=== PATIENT | male | born 1970 | race Caucasian/White ===

== ENCOUNTER 2018-10-17 11:24 | Observation (INO) | payer BC ==
[2018-10-17 11:24] VITALS: BMI 30.1
[~2018-10-17 11:24] MED LIST: Bupivacaine 0.5% Inj(30mL) IJ ONE
[2018-10-17] MEDS ORDERED: Alum-Mag Hydrox-Simethicone Susp (30 mL) PO STA (11:56)
--- NOTE | 2018-10-17 12:05 | ED PDOC ---
Arrival/HPI - General Chief Complaint: Abdominal Pain Time Seen by Provider: 10/17/18 11:40 Historian: Patient - History of Present Illness Narrative History of Present Illness (Text): 10/17/18 11:40 Reed Carey is a 48 year old male, with a past medical history of diabetes type II, who presents to the emergency department complaining of epigastric pain radiating to the right upper quadrant since 07:00 this morning. Patient informs eating [place] food last night; Pt's last bowel movement was this morning. Patient denies fevers, chills, headache, dizziness, chest pain, shortness of breath, cough, vomiting, diarrhea, dysuria, hematuria, or any other complaints. Time/Duration: 24 hours (last night) Symptom Onset: Sudden Symptom Course: Unchanged Activities at Onset: Light Context: Home Past Medical History - Provider Review Nursing Documentation Reviewed: Yes - Infectious Disease Hx of Infectious Diseases: None - Cardiac Hx Hypertension: Yes - Pulmonary Hx Respiratory Disorders: No - Neurological Hx Neurological Disorder: No - HEENT Hx HEENT Disorder: No - Renal Hx Renal Disorder: No - Endocrine/Metabolic Hx Diabetes Mellitus Type 2: Yes - Hematological/Oncological Hx Blood Disorders: No - Integumentary Hx Dermatological Disorder: No - Musculoskeletal/Rheumatological Hx Musculoskeletal Disorders: No - Gastrointestinal Hx Gastrointestinal Disorders: No - Genitourinary/Gynecological Hx Genitourinary Disorders: No - Psychiatric Hx Psychophysiologic Disorder: No Hx Substance Use: No - Anesthesia Hx Anesthesia: No Hx Anesthesia Reactions: No Hx Malignant Hyperthermia: No Family/Social History - Physician Review Nursing Documentation Reviewed: Yes Family/Social History: Other (brother: cholecystectomy, mother: appendectomy) Smoking Status: Light Smoker < 10 Cigarettes Daily Hx Alcohol Use: No Hx Substance Use: No Allergies/Home Meds Allergies/Adverse Reactions: Allergies ibuprofen Allergy (Verified 10/30/17 08:42) WHEEZING Home Medications: Home Meds Medication Instructions Recorded Confirmed Dapagliflozin Propanediol [Farxiga] 10 mg PO DAILY 10/30/17 10/17/18 Lisinopril [Zestril] 5 mg PO DAILY 10/30/17 10/17/18 Simvastatin 5 mg PO DAILY 10/30/17 10/17/18 metFORMIN [glucOPHAGE] 1,000 mg PO BID 10/30/17 10/17/18 Review of Systems - Physician Review All systems were reviewed & negative as marked: Yes - Review of Systems Constitutional: absent: Fevers, Other (chills) Respiratory: absent: SOB, Cough Cardiovascular: absent: Chest Pain Gastrointestinal: Abdominal Pain (epigastric radiating to RUQ), Nausea. absent: Diarrhea, Vomiting Genitourinary Male: absent: Dysuria, Hematuria Neurological: absent: Headache, Dizziness Physical Exam Vital Signs Reviewed: Yes Vital Signs Temp Pulse Resp BP Pulse Ox 10/17/18 11:29 98 F 102 H 19 125/90 99 Temperature: Afebrile Blood Pressure: Normal Pulse: Tachycardic Respiratory Rate: Normal Appearance: Positive for: Well-Appearing, Non-Toxic, Comfortable Pain Distress: None Mental Status: Positive for: Alert and Oriented X 3 - Systems Exam Head: Present: Atraumatic, Normocephalic Pupils: Present: PERRL Extroacular Muscles: Present: EOMI Conjunctiva: Present: Normal Mouth: Present: Moist Mucous Membranes Neck: Present: Normal Range of Motion Respiratory/Chest: Present: Clear to Auscultation, Good Air Exchange. No: Respiratory Distress, Accessory Muscle Use, Wheezes, Rales, Rhonchi Cardiovascular: Present: Normal S1, S2, Tachycardic. No: Murmurs, Rub, Gallop Abdomen: Present: Tenderness (R sided), Normal Bowel Sounds. No: Distention, Peritoneal Signs, Rebound, Guarding Back: Present: Normal Inspection Upper Extremity: Present: Normal Inspection. No: Cyanosis, Edema Lower Extremity: Present: Normal Inspection. No: Edema Neurological: Present: GCS=15, CN II-XII Intact, Speech Normal Skin: Present: Warm, Dry, Normal Color. No: Rashes Psychiatric: Present: Alert, Oriented x 3, Normal Insight, Normal Concentration Medical Decision Making ED Course and Treatment: 10/17/18 11:40 Impression: Reed Carey is a 48 year old male, with a past medical history of diabetes type II, who presents to the emergency department complaining of epigastric pain radiating to the right upper quadrant since 07:00 this morning. Tender on exam Plan: -- Labs -- EKG -- Maalox -- Pepcid -- Zofran -- US Gallbladder -- Reassess and disposition Prior Visits: Notes and results from previous visits were reviewed. Progress Notes: 05/17/19 12:35 EKG shows NSR at 91bpm with normal intervals and no ST changes 10/17/18 12:38 Patient made aware of elevated lipase levels; denies hx of abdominal surgeries or significant drinking 10/17/18 13:32 IMPRESSION: U/s: Examination limited by bowel gas. No acute findings identified. CT ordered 10/17/18 16:23 CT abd/pelvis There is mural thickening and enhancement of the appendix as well as minimal surrounding inflammatory changes. Findings are consistent with early appendicitis. 10/17/18 17:13 10/17/18 17:16 - Scribe Statement The provider has reviewed the documentation as recorded by the Scribe Giovanni Wood All medical record entries made by the Scribe were at my direction and personally dictated by me. I have reviewed the chart and agree that the record accurately reflects my personal performance of the history, physical exam, medical decision making, and the department course for this patient. I have also personally directed, reviewed, and agree with the discharge instructions and disposition. Disposition/Present on Arrival - Present on Arrival Any Indicators Present on Arrival: No History of DVT/PE: No History of Uncontrolled Diabetes: No Urinary Catheter: No History of Decub. Ulcer: No History Surgical Site Infection Following: None - Disposition Have Diagnosis and Disposition been Completed?: Yes Diagnosis: Appendicitis Disposition: HOSPITALIZED Disposition Time: 14:50 Patient Plan: Observation Condition: FAIR Referrals: Mary Jane Jameson MD [Primary Care Provider] - Follow up with primary Forms: [employer] (Uzbek)
[2018-10-17 12:18] LABS: BASO # 0.02 K/mm3 (0.0-2.0); BASO % 0.1 % (0.0-3.0); EOS # 0.1 (0.0-0.7); EOS % 0.6 % (1.5-5.0); HEMOGLOBIN 16.3 g/dL (14.0-18.0); LYMPH # 1.7 (1.2-3.4); LYMPH % 10.3 % (22.0-35.0); MEAN CELL VOLUME 82.5 fl (80.0-105.0); MEAN CORPUSCULAR HEMOGLOBIN 28.4 pg (25.0-35.0); MEAN CORPUSCULAR HGB CONC 34.5 g/dl (31.0-37.0); MEAN PLATELET VOLUME 9.2 fl (7.0-11.0); MONO # 1.3 (0.1-0.6); MONO % 7.5 % (1.0-6.0); RBC 5.73 10^6/uL (3.5-6.1); RED CELL DISTRIBUTION WIDTH 13.5 % (11.5-14.5); WHITE BLOOD COUNT 16.7 10^3/uL (4.5-11.0)
[2018-10-17 12:29] LABS: ALB/GLOB RATIO 1.2 (1.1-1.8); ALT/SGPT 33 U/L (7-56); AST/SGOT 24 U/L (17-59); BLOOD UREA NITROGEN 19 mg/dL (7-21); CALCIUM 9.3 mg/dL (8.4-10.5); GFR NON-AFRICAN AMERICAN > 60; LIPASE 1038 U/L (23-300)
[2018-10-17 12:40] LABS: TROPONIN I < 0.01 ng/mL
--- NOTE | 2018-10-17 13:34 | US ---
Date of service: 10/17/2018 HISTORY: RUQ pain COMPARISON: None available TECHNIQUE: Sonographic evaluation of the right upper quadrant of the abdomen. FINDINGS: Examination limited by bowel gas. LIVER: Measures 17.4 cm in length. Normal echogenicity of the liver parenchyma. No focal hepatic mass identified. The main portal vein appears patent with normal directional flow. No intrahepatic bile duct dilatation. GALLBLADDER: No gallstones. No gallbladder wall thickening or pericholecystic edema. Negative sonographic Haddad's sign as assessed by the category analyst. COMMON BILE DUCT: Measures 3 mm. PANCREAS: Not well-visualized. RIGHT KIDNEY: Measures approximately 10.7 x 4.5 x 5.8 cm. No obstructing calculus or hydronephrosis identified. AORTA: Not well-visualized. IVC: Limited visualization appears grossly unremarkable. OTHER FINDINGS: None . IMPRESSION: Examination limited by bowel gas. No acute findings identified.
[2018-10-17] MEDS ORDERED: Morphine 4 mg/ml ISec IVP STA ×2 (14:21→16:22)
[2018-10-17] MEDS ORDERED: Iohexol 350 MG/100 ML VIAL ONE (15:57)
--- NOTE | 2018-10-17 16:21 | CT ---
Date of service: 10/17/2018 PROCEDURE: CT Abdomen and Pelvis with contrast HISTORY: abdominal pain, pancreatitis, normal u/s COMPARISON: None. TECHNIQUE: Contrast dose: 100 cc of Omni 350 Radiation dose: Total exam DLP = 580.02 mGy-cm. This CT exam was performed using one or more of the following dose reduction techniques: Automated exposure control, adjustment of the mA and/or kV according to patient size, and/or use of iterative reconstruction technique. FINDINGS: LOWER THORAX: Unremarkable. LIVER: Unremarkable. No gross lesion or ductal dilatation. GALLBLADDER AND BILE DUCTS: Unremarkable. PANCREAS: Unremarkable. No gross lesion or ductal dilatation. SPLEEN: Unremarkable. ADRENALS: Unremarkable. No mass. KIDNEYS AND URETERS: Unremarkable. No hydronephrosis. No solid mass. VASCULATURE: Unremarkable. No aortic aneurysm. No aortic atherosclerotic calcification or mural plaque present. BOWEL: Unremarkable. No obstruction. No gross mural thickening. APPENDIX: There is mural thickening and enhancement of the appendix as well as minimal surrounding inflammatory changes. Findings are consistent with early appendicitis. Findings were discussed with Dr. Romero at 4:15 p.m. PERITONEUM: Unremarkable. No free fluid. No free air. LYMPH NODES: Unremarkable. No enlarged lymph nodes. BLADDER: Unremarkable. REPRODUCTIVE: Unremarkable. BONES: No acute fracture. OTHER FINDINGS: None. IMPRESSION: There is mural thickening and enhancement of the appendix as well as minimal surrounding inflammatory changes. Findings are consistent with early appendicitis.
--- NOTE | 2018-10-17 17:02 | CP.PCM.CON ---
<Alejandro Whalen - Last Filed: 10/17/18 17:07> History of Present Illness - History of Present Illness History of Present Illness: General Surgery Note for Dr. Parry 48 year old male with PMHx of DM, HTN, Hypercholesterolemia presents to the ED with epigastric and RUQ pain. The pain began at 7AM this morning and is described as being a sharp, stabbing pain 8 out of 10 in quality, mainly at the umbilicus. It woke the patient from his sleep and he tried drinking seltzer water, which worsened the pain. Gas X did not relieve his symptoms. He initially attributed his pain to bad food he ate the night before, however as the day went on pain migrated to the RLQ and became severe. Patient also promotes nausea earlier on. Patient denies fever, fatigue, headache, blurry vision, chest pain, palpitations, SOB, vomiting, diarrhea, constipation, numbness and tingling, urinary incontinence, dysuria. PMHx: DM Type 2, HTN, Hypercholesterolemia PSHx: nasal polyps 11 years ago Fam Hx: Mother (DM, gallstones), Brother (gallstones), Father (DM) Allergies: Ibuprofen, Motrin, and other NSAIDs (severe reaction) Social Hx: 12 year smoking history (approx. 2 packs a week), denies alcohol and illicit drug use Meds: Dapagliflozin 10 mg, Metformin 1000mg BID, Simvastatin 5mg, Lisinopril 5mg Review of Systems - Review of Systems All systems: reviewed and no additional remarkable complaints except (As per HPI) Past Patient History - Infectious Disease Hx of Infectious Diseases: None - Past Social History Smoking Status: Light Smoker < 10 Cigarettes Daily - CARDIAC Hx Hypertension: Yes - PULMONARY Hx Respiratory Disorders: No - NEUROLOGICAL Hx Neurological Disorder: No - HEENT Hx HEENT Problems: No - RENAL Hx Chronic Kidney Disease: No - ENDOCRINE/METABOLIC Hx Diabetes Mellitus Type 2: Yes - HEMATOLOGICAL/ONCOLOGICAL Hx Blood Disorders: No - INTEGUMENTARY Hx Dermatological Problems: No - MUSCULOSKELETAL/RHEUMATOLOGICAL Hx Musculoskeletal Disorders: No - GASTROINTESTINAL Hx Gastrointestinal Disorders: No - GENITOURINARY/GYNECOLOGICAL Hx Genitourinary Disorders: No - PSYCHIATRIC Hx Psychophysiologic Disorder: No Hx Substance Use: No - SURGICAL HISTORY Hx Surgeries: No - ANESTHESIA Hx Anesthesia: No Hx Anesthesia Reactions: No Hx Malignant Hyperthermia: No Meds Allergies/Adverse Reactions: Allergies Allergy/AdvReac Type Severity Reaction Status Date / Time ibuprofen Allergy WHEEZING Verified 10/30/17 08:42 Physical Exam - Constitutional Appears: Well, Non-toxic, No Acute Distress - Eye Exam Eye Exam: absent: Scleral icterus - ENT Exam ENT Exam: Mucous Membranes Moist, Normal Exam - Respiratory Exam Respiratory Exam: Clear to Auscultation Bilateral, NORMAL BREATHING PATTERN. absent: Respiratory Distress - Cardiovascular Exam Cardiovascular Exam: REGULAR RHYTHM, +S1, +S2. absent: Bradycardia, Tachycardia - GI/Abdominal Exam GI & Abdominal Exam: Guarding (voluntary), Normal Bowel Sounds, Rebound (RLQ), Soft, Tenderness (Tenderness RLQ). absent: Bruit - Back Exam Back exam: NORMAL INSPECTION. absent: CVA tenderness (L), CVA tenderness (R) - Skin Skin Exam: Dry, Intact, Normal Color, Warm Results - Vital Signs Recent Vital Signs: Last Vital Signs Temp 98 F 10/17/18 11:29 Pulse 89 10/17/18 14:50 Resp 16 10/17/18 14:50 BP 118/76 10/17/18 14:50 Pulse Ox 97 10/17/18 14:50 - Labs Result Diagrams: 10/17/18 12:08 10/17/18 12:08 Labs: Laboratory Results - last 24 hr 10/17/18 10/17/18 12:08 12:08 WBC 16.7 H RBC 5.73 Hgb 16.3 Hct 47.3 MCV 82.5 MCH 28.4 MCHC 34.5 RDW 13.5 Plt Count 349 MPV 9.2 Neut % (Auto) 81.5 H Lymph % (Auto) 10.3 L Rogers % (Auto) 7.5 H Eos % (Auto) 0.6 L Baso % (Auto) 0.1 Lymph # (Auto) 1.7 Rogers # (Auto) 1.3 H Eos # (Auto) 0.1 Baso # (Auto) 0.02 Absolute Neuts (auto) 13.63 H Sodium 139 Potassium 4.5 Chloride 103 Carbon Dioxide 27 Anion Gap 13 BUN 19 Creatinine 0.9 Est GFR ( Amer) > 60 Est GFR (Non-Af Amer) > 60 Random Glucose 203 H Calcium 9.3 Phosphorus 3.0 Magnesium 1.7 Total Bilirubin 0.7 AST 24 ALT 33 Alkaline Phosphatase 70 Troponin I < 0.01 Total Protein 7.3 Albumin 4.0 Globulin 3.3 Albumin/Globulin Ratio 1.2 Lipase 1038 H - Imaging and Cardiology CT scan - abdomen Status: Image reviewed by me, Report reviewed by me Assessment & Plan - Assessment and Plan (Free Text) Assessment: 48M w/ acute appendicitis Plan: NPO IV antibiotics Pain management anti-emetic PRN plan for laparoscopic appendectomy this evening D/W Dr. Sohan Whalen, PGY4 <Bernard Parry - Last Filed: 10/18/18 07:23> Meds - Medications Medications: Current Medications Hydromorphone HCl (Dilaudid) 0.5 mg IVP Q15M PRN PRN Reason: Pain, Moderate/Severe (4-10) Piperacillin Sod/Tazobactam Sod (Zosyn 3.375 In Ns 100ml) 100 mls @ 25 mls/hr IVPB Q8 JENA; Protocol Stop: 10/18/18 09:59 Last Admin: 10/18/18 05:04 Dose: 25 mls/hr Lactated Ringer's (Lactated Ringer's) 1,000 mls @ 125 mls/hr IV .Q8H JENA Last Admin: 10/18/18 01:32 Dose: 125 mls/hr Morphine Sulfate (Morphine) 4 mg IVP Q4H PRN PRN Reason: Pain, severe (8-10) Last Admin: 10/18/18 05:04 Dose: 4 mg Ondansetron HCl (Zofran Inj) 4 mg IVP Q4H PRN PRN Reason: Nausea/Vomiting Ondansetron HCl (Zofran Inj) 4 mg IVP ONCE PRN PRN Reason: Nausea/Vomiting Oxycodone/Acetaminophen (Percocet 5/325 Mg Tab) 1 tab PO Q4H PRN PRN Reason: Pain, moderate (4-7) Stop: 10/21/18 06:32 Results - Vital Signs Recent Vital Signs: Last Vital Signs Temp 98.5 F 10/18/18 01:25 Pulse 89 10/18/18 01:25 Resp 18 10/18/18 01:25 BP 131/83 10/18/18 01:25 Pulse Ox 94 L 10/18/18 01:25 - Labs Result Diagrams: 10/17/18 12:08 10/17/18 12:08 Labs: Laboratory Results - last 24 hr 10/17/18 10/17/18 10/17/18 12:08 12:08 19:00 WBC 16.7 H RBC 5.73 Hgb 16.3 Hct 47.3 MCV 82.5 MCH 28.4 MCHC 34.5 RDW 13.5 Plt Count 349 MPV 9.2 Neut % (Auto) 81.5 H Lymph % (Auto) 10.3 L Rogers % (Auto) 7.5 H Eos % (Auto) 0.6 L Baso % (Auto) 0.1 Lymph # (Auto) 1.7 Rogers # (Auto) 1.3 H Eos # (Auto) 0.1 Baso # (Auto) 0.02 Absolute Neuts (auto) 13.63 H PT 10.9 INR 0.98 APTT 33.8 Sodium 139 Potassium 4.5 Chloride 103 Carbon Dioxide 27 Anion Gap 13 BUN 19 Creatinine 0.9 Est GFR ( Amer) > 60 Est GFR (Non-Af Amer) > 60 Random Glucose 203 H Calcium 9.3 Phosphorus 3.0 Magnesium 1.7 Total Bilirubin 0.7 AST 24 ALT 33 Alkaline Phosphatase 70 Troponin I < 0.01 Total Protein 7.3 Albumin 4.0 Globulin 3.3 Albumin/Globulin Ratio 1.2 Lipase 1038 H Assessment & Plan - Assessment and Plan (Free Text) Plan: Patient was seen, evaluated and examined by me at the bedside. I agree with assessment and plan as stated in the resident's note.
[2018-10-17] MEDS: Lactated Ringer's 1,000 ML IV SCH (18:25)
--- NOTE | 2018-10-17 19:35 | CARD ---
APPROVED REPORT Date of service: 10/17/2018 EKG Measurement Heart [id number] <Conclusion> Normal sinus rhythm Normal ECG
[2018-10-17 20:07] LABS: INR 0.98; PARTIAL THROMBOPLASTIN TIME 33.8 Seconds (26.9-38.3); PROTHROMBIN TIME 10.9 SECONDS (9.4-12.5)
[2018-10-17] MEDS: Piperacillin/Tazobact 3.375 gm 100 ML IVPB SCH (21:36)
[2018-10-17] MEDS ORDERED: Propofol 10 mg/ml Inj (20 ML) ONE (22:41)
[2018-10-17] MEDS ORDERED: Succinylcholine 200 mg/10 ml Inj IV ONE (22:42)
[2018-10-17] MEDS ORDERED: Rocuronium 10 mg/ml (5 ml) ONE (22:42)
[2018-10-17] MEDS ORDERED: Bupivacaine 0.5% 50 ML IJ ONE (22:51)
[2018-10-17] MEDS ORDERED: Pneumococcal 23-Valent Vaccine IM ONE (23:14)
--- NOTE | 2018-10-18 00:36 | PCM.SURG1 ---
Surgeon's Initial Post Op Note - Surgeon's Notes Surgeon: Dr Parry Ethylene Plant Helper: Dr Whalen PGY4 Type of Anesthesia: General Endo Anesthesia Administered By: Dr Umanzor Pre-Operative Diagnosis: Acute Appendicitis Operative Findings: see report Post-Operative Diagnosis: as above Operation Performed: laparoscopic appendectomy Specimen/Specimens Removed: appendix Estimated Blood Loss: EBL {In ML}: 5 Blood Products Given: N/A Drains Used: No Drains Post-Op Condition: Good Date of Surgery/Procedure: 10/18/18 Time of Surgery/Procedure: 00:35
[2018-10-18] MEDS ORDERED: HYDROmorphone 0.5 mg/0.5 ml ISec IVP PRN (00:39)
[2018-10-18] MEDS: Lactated Ringer's 1,000 ML IV SCH (01:32)
[2018-10-18] MEDS: Morphine 4 mg/ml ISec IVP PRN ×2 (01:32→05:04)
[2018-10-18] MEDS: Piperacillin/Tazobact 3.375 gm 100 ML IVPB SCH (05:04)
[2018-10-18] MEDS ORDERED: Oxycodone/Acetaminophen 5/325 mg Tab PO PRN (06:31)
--- NOTE | 2018-10-18 07:15 | CP.PCM.PN ---
<KobyAlejandro Sarita - Last Filed: 10/18/18 07:08> Subjective - Date & Time of Evaluation Date of Evaluation: 10/18/18 Time of Evaluation: 07:08 - Subjective Subjective: General Surg: Dr Parry Pt S&E. S/P Lap appendectomy. NAEO. Has urinated since surgery. Still with abdominal pain, controlled with meds. Denies N/V, F/C. Has not yet tried food. Denies flatus or BM Objective - Vital Signs/Intake and Output Vital Signs (last 24 hours): Temp Pulse Resp BP Pulse Ox 98.5 F 89 18 131/83 94 L 10/18/18 01:25 10/18/18 01:25 10/18/18 01:25 10/18/18 01:25 10/18/18 01:25 - Medications Medications: Current Medications Hydromorphone HCl (Dilaudid) 0.5 mg IVP Q15M PRN PRN Reason: Pain, Moderate/Severe (4-10) Piperacillin Sod/Tazobactam Sod (Zosyn 3.375 In Ns 100ml) 100 mls @ 25 mls/hr IVPB Q8 JENA; Protocol Stop: 10/18/18 09:59 Last Admin: 10/18/18 05:04 Dose: 25 mls/hr Lactated Ringer's (Lactated Ringer's) 1,000 mls @ 125 mls/hr IV .Q8H JENA Last Admin: 10/18/18 01:32 Dose: 125 mls/hr Morphine Sulfate (Morphine) 4 mg IVP Q4H PRN PRN Reason: Pain, severe (8-10) Last Admin: 10/18/18 05:04 Dose: 4 mg Ondansetron HCl (Zofran Inj) 4 mg IVP Q4H PRN PRN Reason: Nausea/Vomiting Ondansetron HCl (Zofran Inj) 4 mg IVP ONCE PRN PRN Reason: Nausea/Vomiting Oxycodone/Acetaminophen (Percocet 5/325 Mg Tab) 1 tab PO Q4H PRN PRN Reason: Pain, moderate (4-7) Stop: 10/21/18 06:32 - Labs Labs: 10/17/18 12:08 10/17/18 12:08 PT 10.9 SECONDS (9.4-12.5) 10/17/18 19:00 INR 0.98 10/17/18 19:00 APTT 33.8 Seconds (26.9-38.3) 10/17/18 19:00 - Constitutional Appears: Non-toxic - Head Exam Head Exam: NORMAL INSPECTION - Respiratory Exam Respiratory Exam: absent: Accessory Muscle Use, Respiratory Distress - Cardiovascular Exam Cardiovascular Exam: REGULAR RHYTHM. absent: Tachycardia - GI/Abdominal Exam GI & Abdominal Exam: Soft, Tenderness (post-operative). absent: Distended - Extremities Exam Extremities Exam: absent: Pedal Edema - Neurological Exam Neurological Exam: Alert, Awake, Oriented x3 - Psychiatric Exam Psychiatric exam: Normal Affect, Normal Mood Assessment and Plan - Assessment and Plan (Free Text) Assessment: 48M s/p laparoscopic appendectomy Plan: ok to resume diet switch to PO pain meds incentive spirometer OOB and ambulate will start DVT prophylaxis OK for discharge in afternoon if tolerates diet and pain is controlled d/w Dr Sohan Whalen, PGY4 <Bernard Parry - Last Filed: 10/18/18 07:30> Objective - Vital Signs/Intake and Output Vital Signs (last 24 hours): Temp Pulse Resp BP Pulse Ox 98.5 F 89 18 131/83 94 L 10/18/18 01:25 10/18/18 01:25 10/18/18 01:25 10/18/18 01:25 10/18/18 01:25 - Medications Medications: Current Medications Hydromorphone HCl (Dilaudid) 0.5 mg IVP Q15M PRN PRN Reason: Pain, Moderate/Severe (4-10) Piperacillin Sod/Tazobactam Sod (Zosyn 3.375 In Ns 100ml) 100 mls @ 25 mls/hr IVPB Q8 JENA; Protocol Stop: 10/18/18 09:59 Last Admin: 10/18/18 05:04 Dose: 25 mls/hr Lactated Ringer's (Lactated Ringer's) 1,000 mls @ 125 mls/hr IV .Q8H JENA Last Admin: 10/18/18 01:32 Dose: 125 mls/hr Morphine Sulfate (Morphine) 4 mg IVP Q4H PRN PRN Reason: Pain, severe (8-10) Last Admin: 10/18/18 05:04 Dose: 4 mg Ondansetron HCl (Zofran Inj) 4 mg IVP Q4H PRN PRN Reason: Nausea/Vomiting Ondansetron HCl (Zofran Inj) 4 mg IVP ONCE PRN PRN Reason: Nausea/Vomiting Oxycodone/Acetaminophen (Percocet 5/325 Mg Tab) 1 tab PO Q4H PRN PRN Reason: Pain, moderate (4-7) Stop: 10/21/18 06:32 - Labs Labs: 10/17/18 12:08 10/17/18 12:08 PT 10.9 SECONDS (9.4-12.5) 10/17/18 19:00 INR 0.98 10/17/18 19:00 APTT 33.8 Seconds (26.9-38.3) 10/17/18 19:00 Assessment and Plan - Assessment and Plan (Free Text) Plan: Patient was seen, evaluated and examined by me at the bedside. I agree with assessment and plan as stated in the resident's note.
--- NOTE | 2018-10-18 08:39 | RAD ---
Date of service: 10/17/2018 HISTORY: pre-op COMPARISON: No prior. TECHNIQUE: 1 view obtained. FINDINGS: LUNGS: No active pulmonary disease. PLEURA: No significant pleural effusion identified, no pneumothorax apparent. CARDIOVASCULAR: No aortic atherosclerotic calcification present. Normal cardiac size. No pulmonary vascular congestion. OSSEOUS STRUCTURES: No significant abnormalities. VISUALIZED UPPER ABDOMEN: Normal. OTHER FINDINGS: None. IMPRESSION: No active disease.
[2018-10-18 09:47] LABS: BASO # 0.01 K/mm3 (0.0-2.0); BASO % 0.1 % (0.0-3.0); EOS # 0.1 (0.0-0.7); EOS % 0.8 % (1.5-5.0); HEMOGLOBIN 14.9 g/dL (14.0-18.0); LYMPH # 2.6 (1.2-3.4); LYMPH % 20.8 % (22.0-35.0); MEAN CELL VOLUME 83.3 fl (80.0-105.0); MEAN CORPUSCULAR HGB CONC 33.6 g/dl (31.0-37.0); MEAN PLATELET VOLUME 8.7 fl (7.0-11.0); MONO # 1.5 (0.1-0.6); MONO % 11.5 % (1.0-6.0); RBC 5.33 10^6/uL (3.5-6.1); RED CELL DISTRIBUTION WIDTH 13.7 % (11.5-14.5); WHITE BLOOD COUNT 12.7 10^3/uL (4.5-11.0)
[2018-10-18] MEDS ORDERED: DAPAGLIFLOZIN PROPANEDIOL 10 MG PO SCH (10:00)
[2018-10-18 10:04] LABS: ALB/GLOB RATIO 1.1 (1.1-1.8); ALBUMIN 3.7 g/dL (3.0-4.8); ALT/SGPT 21 U/L (7-56); AMYLASE 78 U/L (35-125); AST/SGOT 25 U/L (17-59); BLOOD UREA NITROGEN 14 mg/dL (7-21); CALCIUM 9.1 mg/dL (8.4-10.5); GFR NON-AFRICAN AMERICAN > 60
[2018-10-18 14:17] VITALS: BP 104/69; PULSE 86; RESP 19; TEMP 98.6; O2SAT 96
[2018-10-18] MEDS ORDERED: Simethicone 80 mg Chewtab PO PRN (14:44)
[2018-10-18 15:16] LABS: URINE BILIRUBIN NEGATIVE (NEGATIVE); URINE BLOOD TRACE-LYSED (NEGATIVE); URINE GLUCOSE (UA) >=1000 mg/dL (NEGATIVE); URINE LEUKOCYTE ESTERASE NEGATIVE Leu/uL (NEGATIVE); URINE PROTEIN NEGATIVE mg/dL (<30 mg/dL); URINE UROBILINOGEN 0.2 E.U./dL (<1 E.U./dL)
[2018-10-18 15:17] LABS: URINE APPEARANCE CLEAR (CLEAR); URINE COLOR YELLOW (YELLOW)
[2018-10-18 15:22] LABS: URINE RBC 0 - 2 /hpf (0-2)
[2018-10-18 15:51] LABS: LIPASE 174 U/L (23-300)
--- NOTE | 2018-10-18 16:40 | HP ---
DATE OF EXAM: 10/18/2018 HISTORY OF PRESENT ILLNESS: This is a 48-year-old male who has come into the hospital with a past medical history of diabetes type 2, complaining of epigastric pain, it was radiating to the right upper quadrant. The patient states that he had eaten last night prior to coming to the hospital and started having these symptoms. The patient did not have any chest pain. No fevers or chills. He had no shortness of breath. He had no nausea or vomiting. He has no dysuria or frequency or nocturia. He has no weakness in the arms or the legs. He says he tried to take Gas-X, but it did not help his symptoms. The patient had a CAT scan done and there were concerns of appendicitis. Surgery was consulted and it is felt that the patient will need to go to the OR for an appendectomy. The patient had a laparoscopic appendectomy done by Dr. Parry. He had done fairly well postprocedure. He had gallbladder ultrasound done showed that it was a limited exam because of gas. His common bile duct measured about 3 mm. The CAT scan that was done showed that the appendix showed mural thickening. There were minimal surrounding inflammatory changes that was consistent with appendicitis. The patient had a chest x-ray done that showed no infiltrates. The patient had EKG that showed sinus rhythm with a heart rate of 91, QTc is 423. PAST MEDICAL HISTORY: Diabetes type 2, hypertension, and dyslipidemia. PAST SURGICAL HISTORY: Nasal polyps. ALLERGIES: TO IBUPROFEN AND MOTRIN. FAMILY HISTORY: Mother had diabetes and gallstones, brother had gallstones, father had diabetes. SOCIAL HISTORY: He smoked 2 packs per week for about 12 years. Denies any alcohol or drugs. He works as a tank officer. PHYSICAL EXAMINATION: VITAL SIGNS: Temperature is 98.5, pulse of 89, blood pressure of 121/83, respirations 18, and O2 saturation is 94%. Height is 5 feet 8 inches, weight is 196 pounds, and BMI is 29.8. GENERAL: The patient is lying in bed, comfortable, and in no acute distress. HEENT: Atraumatic and normocephalic. Anicteric sclerae. Moist mucosa. [place] conjunctivae. No oral lesions. NECK: No JVD, anterior and posterior adenopathy, thyromegaly, or bruits. CARDIOVASCULAR: S1 and S2 regular. No murmurs, rubs or gallops. LUNGS: Clear to auscultation bilaterally. No wheezes, rales, or rhonchi. ABDOMEN: Bowel sounds are positive. Soft, nontender and nondistended. No hepatosplenomegaly. No rebound and no guarding. In the umbilical area, there is a small area of redness from the laparoscopic wound, but clean. No discharge. EXTREMITIES: No cyanosis, clubbing, or edema. NEUROLOGIC: No facial asymmetry. Tongue is midline. No uvula deviation. Power is 5/5 upper extremities and lower extremities. Sensation intact in upper extremities and lower extremities. PSYCHIATRIC: She is awake, alert and oriented x3. No anxiety or depression. She has normal affect. GENITOURINARY: No CVA tenderness. VASCULAR: 2+ pulses in the carotid pulses and pedal pulses. SKIN: No erythema or nodules. SPINE: Shows normal curvature. LABORATORY DATA: White count of 16.7 on admission and repeat is 12.7, hemoglobin is 16.3, INR is 0.98. Chemistries showed a sodium of 139 and potassium is 4.5. The patient's troponin is 0.01 and lipase is 1038. ASSESSMENT: 1. Appendicitis, status post appendectomy. 2. Diabetes, type 2. 3. Hypertension. 4. Dyslipidemia. PLAN: The patient is currently comfortable. He did fairly well after the procedure. He says he is feeling better after the appendectomy. His white cell count is improving. The patient has been on Dilaudid for pain. He is on lactated Ringer's, I will discontinue the lactated Ringer's at this point. He will continue his Lipitor for dyslipidemia. He is on heparin for DVT prophylaxis. His pain is well controlled. The patient is on Percocet for pain. He is on lisinopril for his hypertension. He is on Zofran for nausea. He is getting incentive spirometry. He is on a regular diet and tolerating. He is able to ambulate. His pain is controlled with medications. He is going to be discharged home today and follow up with his primary care doctor within a week, his primary care doctor is in [place]. The patient is also going to follow up with Dr. Parry within a week. The patient was advised to take off from work for the next week and follow up with his primary to decide when he is ready to go back to work on full duty. He will be given oxycodone for pain control. CONDITION: Stable. ACTIVITIES: Increase as tolerated. DISCHARGE: To home. Matthew Ordoñez MD
--- NOTE | 2018-10-20 08:15 | OP ---
PROCEDURE DATE: 10/17/2018 SURGERY: Laparoscopic appendectomy. INDICATION: Acute appendicitis. SURGEON: Bernard Parry MD [employer] PUMPING SUPERVISOR: Alejandro Whalen DO ANESTHESIOLOGIST: Humble Umanzor MD ESTIMATED BLOOD LOSS: 5 mL. PREOPERATIVE DIAGNOSIS: Acute appendicitis. INDICATION: This is a 48-year-old male who presented with periumbilical pain early this morning which slowly migrated to the right lower quadrant. He was found to have leukocytosis and early appendicitis on CAT scan. After discussion of the procedure in the preoperative holding area, consent was signed and obtained. DESCRIPTION OF PROCEDURE: The patient was then taken to the operating room and placed on the tablet in supine fashion. After the induction of general anesthesia and placement of endotracheal tube, the patient was prepped and draped in usual sterile fashion. Time-out was performed confirming the appropriate patient and the appropriate procedure which we are about to perform. After everyone was in agreement with time-out, the umbilicus and a suprapubic port area were both anesthetized using 0.5% Marcaine. Using an 11-blade, a 10-mm supraumbilical incision was then made, dissection was carried down using Vera clamps down the umbilical sac. Through this incision, the Veress needle was then inserted into the abdomen. Saline drop test was performed to ensure appropriate placement. After this was confirmed, insufflation was attached to the Veress needle. Opening pressure was 3 mmHg with flow of 2, confirming the layer in the appropriate position. The abdomen was insufflated with 15 mmHg. Following this a 12 mm blunt trocar was inserted through this incision. Subsequently the camera was inserted. The entire abdomen was inspected for pathology. Gallbladder appeared to be nondistended and normal. There are no lesions noted in the liver. The bowel appeared normal. There were no signs of free fluid or succus. The appendix was seen in the right lower quadrant along slightly injected, coming off the end of the cecum. Attention was then placed to placement of suprapubic port. This was done through a 10-mm incision made at the area that was previously anesthetized. A 10-mm trocar was then inserted under direct visualization ensuring no injury to the bowel or underlying bladder. After the trocars were in place, the patient was placed in the appendix position, head down, rotated to the left. At this point, the appendix was in clear view. Using a Zonbo Mediaige grasper in one hand and [place] in the other, the appendix was placed on traction and elevated towards the anterior wall of the abdomen. Small window was made at the base of the appendix, in between the appendix and the mesoappendix. At this point, the appendiceal artery was noted pulsating within the mesoappendix. Using a spatula and electrocautery, the appendiceal artery was skeletonized and taken using the white vascular load of the laparoscopic stapler. After the mesoappendix was ligated a blue bowel reload was placed on the stapler and then the appendix was taken at its base to stop the cecum. This was subsequently followed by the laparoscopic bag which was used to retrieve the appendix and then the appendix was removed through the umbilicus without difficulty. Umbilical port was replaced. The abdomen was reinsufflated, and the area of surgery was inspected for hemostasis. Clot was evaluated via suction and it was noted that there may have been a small area of bleeding at the very edge of the staple line. This was stopped using electrocautery. The rest of the abdomen was again inspected for any further signs of bleeding of which there was none. The lower supraumbilical port was then removed under direct visualization followed by the umbilical port, and the abdomen was allowed to desufflate. Using 2-0 Vicryl, the umbilical fascia was then approximated in a [id number] fashion. This was done again under direct visualization to ensure that no bowel was trapped within the closure. The closure was then palpated for any remnant defect but there was none. Then using 3-0 Vicryl, deep dermal sutures with two incisions were approximated and then closed with subcuticular 4-0 Monocryl with overlying Dermabond. The patient was then extubated and transferred to PACU in stable condition. EBL again was 5 mL. Alejandro Whalen DO Bernard Parry MD [facility] # [id number] MTDD
== END 2018-10-18 22:26 | disposition home or self-care (01) ==
LOC: ED 11:24 → ERH 16:16 → 5RSO 21:00
PROVIDERS: ADMIT Internal Medicine Nephrology; ATTEND Internal Medicine Nephrology
DX: K35.80 Unspecified acute appendicitis (principal); E11.9 Type 2 diabetes mellitus without complications; E78.00 Pure hypercholesterolemia, unspecified; E78.5 Hyperlipidemia, unspecified; I10 Essential (primary) hypertension; Z87.891 Personal history of nicotine dependence; Z83.3 Family history of diabetes mellitus; Z83.79 Family history of other diseases of the digestive system; Z88.6 Allergy status to analgesic agent
CPT/HCPCS: 36415; 44970; 71045; 74177; 76705; 80053; 81001; 82150; 82948; 83690; 83735; 84100; 84484; 85025; 85610; 85730; 93005; 96372; 96374; 96375; 96376; 99284; G0378; J0131; J0330; J1644; J2001; J2270; J2405; J2543; J2704; J3010; J7120; Q9967

== ENCOUNTER 2018-10-19 18:50 | Inpatient (IN) | payer BC ==
[2018-10-19] MEDS ORDERED: POLYETHYLENE GLYCOL 3350 17 GM/Dose PACKET PO STA (19:50)
[2018-10-19 19:55] VITALS: BMI 29.7
[2018-10-19 20:06] LABS: VENOUS BLOOD GAS BASE EXCESS 3.9 mmol/L (0.0-2.0); VENOUS BLOOD GAS PO2 58 mm/Hg (30-55); VENOUS BLOOD PH 7.44 (7.32-7.43)
--- NOTE | 2018-10-19 20:18 | ED PDOC ---
Arrival/HPI <Samir Pierre - Last Filed: 10/19/18 21:36> - General Historian: Patient - History of Present Illness Narrative History of Present Illness (Text): 10/19/18 20:15 CC: Abdominal Pain HPI: 48 yo male w/ PMH of HTN, DM2, and HLD comes to ED for evaluation of abdominal pain. Of note patient was discharged yesterday s/p appendicitis with surgical team [place] [facility] Patient states that he was told that he would be discharged after a bowel movement but patient states he was discharged prior to that. Patient states his last bowel movement was this past Saturday. Patient states that earlier today the abdominal pain was so severe and he felt like he had to use the bathroom for a bowel movement but could not. Patient states he is passing gas which offers him relief. He states he took a gas x pill today which helped but the pain returns intermittently. Denies fevers, chills, chest pain, sob, n/v, constipation or diarrhea, and dysuria. Time/Duration: 24 hours Symptom Onset: Sudden Symptom Course: Intermittent, Worsening Quality: Cramping Severity Level: 10, Severe Activities at Onset: Rest <Gus Flores - Last Filed: 10/20/18 00:30> - General Chief Complaint: Abdominal Pain Time Seen by Provider: 10/19/18 19:13 Past Medical History - Infectious Disease Hx of Infectious Diseases: None - Cardiac Hx Hypertension: Yes - Pulmonary Hx Respiratory Disorders: No - Neurological Hx Neurological Disorder: No - HEENT Hx HEENT Disorder: No - Renal Hx Renal Disorder: No - Endocrine/Metabolic Hx Diabetes Mellitus Type 2: Yes - Hematological/Oncological Hx Blood Disorders: No - Integumentary Hx Dermatological Disorder: No - Musculoskeletal/Rheumatological Hx Falls: No - Gastrointestinal Hx Gastrointestinal Disorders: No - Genitourinary/Gynecological Hx Genitourinary Disorders: No - Psychiatric Hx Psychophysiologic Disorder: No Hx Substance Use: No - Surgical History Other/Comment: appendectomy 10/17/18 - Anesthesia Hx Anesthesia: Yes Hx Anesthesia Reactions: No Hx Malignant Hyperthermia: No <Gus Flores - Last Filed: 10/20/18 00:30> Family/Social History Family/Social History: No Known Family HX Smoking Status: Former Smoker Hx Alcohol Use: No Hx Substance Use: No <Gus Flores - Last Filed: 10/20/18 00:30> Allergies/Home Meds <Samir Pierre - Last Filed: 10/19/18 21:36> <Gus Flores - Last Filed: 10/20/18 00:30> Allergies/Adverse Reactions: Allergies ibuprofen Allergy (Verified 10/19/18 18:59) WHEEZING Home Medications: Home Meds Medication Instructions Recorded Confirmed Dapagliflozin Propanediol [Farxiga] 10 mg PO DAILY 10/30/17 10/17/18 Lisinopril [Zestril] 5 mg PO DAILY 10/30/17 10/17/18 Simvastatin 5 mg PO DAILY 10/30/17 10/17/18 metFORMIN [glucOPHAGE] 1,000 mg PO BID 10/30/17 10/17/18 Review of Systems - Review of Systems Constitutional: Normal, Fatigue. absent: Weight Change Eyes: Normal Respiratory: Normal. absent: SOB, Cough Cardiovascular: Palpitations. absent: Chest Pain Gastrointestinal: Abdominal Pain, Constipation. absent: Stool Changes, Diarrhea, Nausea, Vomiting Musculoskeletal: Normal. absent: Arthralgias, Back Pain Skin: Normal. absent: Rash, Pruritis, Skin Lesions Neurological: Normal. absent: Headache Psychiatric: Normal. absent: Anxiety, Depression <Gus Flores - Last Filed: 10/20/18 00:30> Physical Exam Vital Signs Temp Pulse Resp BP Pulse Ox 10/19/18 18:59 98 F 108 H 19 149/92 H 95 <Samir Pierre - Last Filed: 10/19/18 21:36> Vital Signs Temp Pulse Resp BP Pulse Ox 10/19/18 18:59 98 F 108 H 19 149/92 H 95 Temperature: Afebrile Blood Pressure: Hypertensive Pulse: Tachycardic Respiratory Rate: Normal Appearance: Positive for: Well-Appearing, Non-Toxic, Comfortable Pain Distress: Mild Mental Status: Positive for: Alert and Oriented X 3 - Systems Exam Head: Present: Atraumatic, Normocephalic Pupils: Present: PERRL Extroacular Muscles: Present: EOMI Conjunctiva: Present: Normal Mouth: Present: Moist Mucous Membranes Respiratory/Chest: Present: Clear to Auscultation, Good Air Exchange. No: Respiratory Distress, Accessory Muscle Use, Wheezes Cardiovascular: Present: Normal S1, S2, Tachycardic. No: Murmurs Abdomen: Present: Tenderness, Distention, Normal Bowel Sounds. No: Peritoneal Signs, Rebound, Guarding Upper Extremity: Present: Normal Inspection. No: Cyanosis, Edema Lower Extremity: Present: Normal Inspection. No: Edema Neurological: Present: GCS=15, CN II-XII Intact, Speech Normal Skin: Present: Warm, Dry, Normal Color. No: Rashes Psychiatric: Present: Alert, Oriented x 3, Normal Insight, Normal Concentration <Gus Flores - Last Filed: 10/20/18 00:30> Medical Decision Making ED Course and Treatment: Impression: Pt seen and evaluated with medical billing and coding specialist. Aware and agree with HPI, clinical findings, plan, and management. Pt, whose past medical history includes hypertension, diabetes, and hyperlipidemia, presented for abdominal pain and constipation. Plan: -- XR Abdomen -- VBG -- Polyethylene Glycol -- Reassess and disposition - Lab Interpretations Lab Results: pO2 58 mm/Hg (30-55) H 10/19/18 19:58 VBG pH 7.44 (7.32-7.43) H 10/19/18 19:58 VBG pCO2 42.0 (40-60) 10/19/18 19:58 VBG HCO3 28.5 mmol/l (21-28) H 10/19/18 19:58 VBG Total CO2 29.8 mmol.L (22-28) H 10/19/18 19:58 VBG O2 Sat (Calc) 91.6 % (40-65) H 10/19/18 19:58 VBG Base Excess 3.9 mmol/L (0.0-2.0) H 10/19/18 19:58 VBG Potassium 4.4 mmol/L (3.6-5.2) 10/19/18 19:58 Sodium 133.0 mmol/L (132-148) 10/19/18 19:58 Chloride 98.0 mmol/L (98-107) 10/19/18 19:58 Glucose 194 mg/dl (75-110) H 10/19/18 19:58 Lactate 1.3 mmol/L (0.7-2.1) 10/19/18 19:58 FiO2 21.0 % 10/19/18 19:58 - RAD Interpretation Radiology Orders: 10/19/18 19:50 ABDOMEN (FLAT PLATE) 1VIEW [RAD] Stat - Medication Orders Current Medication Orders: Discontinued Medications Polyethylene Glycol (Miralax) 17 gm PO STAT STA Stop: 10/19/18 19:51 Last Admin: 10/19/18 20:07 Dose: 17 gm <Samir Pierre - Last Filed: 10/19/18 21:36> ED Course and Treatment: 10/19/18 20:20 Impression 48 yo male w/ PMH HTN, HLD, DM2 comes to ED for evaluation of abdominal pain. s/p appendicitis 2 days ago Plan -VBG -Abdominal Xray -Miralax -Fleet Enema Prior Visits All prior documentation and lab work reviewed prior to evaluation Progress Notes pending imaging, after imaging will ask surgical team for input surgical nurse practitioner evaluated patient at bedside recommended observation admission patient continues to have abdominal pain s/p minute pellet bowel movements discussed with Dr. Ordoñez and he accepted patient to his service Re-evaluation Time: 00:27 Reassessment Condition: Re-examined, Unchanged - Lab Interpretations Lab Results: pO2 58 mm/Hg (30-55) H 10/19/18 19:58 VBG pH 7.44 (7.32-7.43) H 10/19/18 19:58 VBG pCO2 42.0 (40-60) 10/19/18 19:58 VBG HCO3 28.5 mmol/l (21-28) H 10/19/18 19:58 VBG Total CO2 29.8 mmol.L (22-28) H 10/19/18 19:58 VBG O2 Sat (Calc) 91.6 % (40-65) H 10/19/18 19:58 VBG Base Excess 3.9 mmol/L (0.0-2.0) H 10/19/18 19:58 VBG Potassium 4.4 mmol/L (3.6-5.2) 10/19/18 19:58 Sodium 133.0 mmol/L (132-148) 10/19/18 19:58 Chloride 98.0 mmol/L (98-107) 10/19/18 19:58 Glucose 194 mg/dl (75-110) H 10/19/18 19:58 Lactate 1.3 mmol/L (0.7-2.1) 10/19/18 19:58 FiO2 21.0 % 10/19/18 19:58 I have reviewed the lab results: Yes Interpretation: No clinic. lab abnormalty - RAD Interpretation Radiology Orders: 10/19/18 19:50 ABDOMEN (FLAT PLATE) 1VIEW [RAD] Stat - Medication Orders Current Medication Orders: Discontinued Medications Polyethylene Glycol (Miralax) 17 gm PO STAT STA Stop: 10/19/18 19:51 Last Admin: 10/19/18 20:07 Dose: 17 gm <Gus Flores - Last Filed: 10/20/18 00:30> - PA / [employer]DER / Resident Statement / has reviewed & agrees with the documentation as recorded. / has examined the patient and agrees with the treatment plan. <Samir Pierre - Last Filed: 10/19/18 21:36> Disposition/Present on Arrival <Samir Pierre - Last Filed: 10/19/18 21:36> - Present on Arrival Any Indicators Present on Arrival: No History of DVT/PE: No History of Uncontrolled Diabetes: No Urinary Catheter: No History of Decub. Ulcer: No History Surgical Site Infection Following: None - Disposition Have Diagnosis and Disposition been Completed?: Yes Disposition Time: 00:28 Patient Plan: Admission <Gus Flores - Last Filed: 10/20/18 00:30> - Disposition Diagnosis: Abdominal pain, Bloated abdomen Patient Problems: Current Active Problems Problem Status Onset Abdominal pain Acute Bloated abdomen Acute Condition: GOOD Referrals: PCP,NO [Primary Care Provider] - Follow up with primary Forms: Dwellable (Faroese)
[2018-10-19 23:21] LABS: BASO # 0.01 K/mm3 (0.0-2.0); BASO % 0.1 % (0.0-3.0); EOS # 0.1 (0.0-0.7); EOS % 0.5 % (1.5-5.0); HEMOGLOBIN 15.9 g/dL (14.0-18.0); LYMPH # 2.1 (1.2-3.4); LYMPH % 16.1 % (22.0-35.0); MEAN CELL VOLUME 82.2 fl (80.0-105.0); MEAN CORPUSCULAR HEMOGLOBIN 28.3 pg (25.0-35.0); MEAN CORPUSCULAR HGB CONC 34.5 g/dl (31.0-37.0); MEAN PLATELET VOLUME 9.4 fl (7.0-11.0); MONO # 1.4 (0.1-0.6); MONO % 10.8 % (1.0-6.0); RBC 5.61 10^6/uL (3.5-6.1); RED CELL DISTRIBUTION WIDTH 13.5 % (11.5-14.5); WHITE BLOOD COUNT 13.1 10^3/uL (4.5-11.0)
--- NOTE | 2018-10-19 23:27 | CP.PCM.CON ---
History of Present Illness - History of Present Illness History of Present Illness: General Surgery Dr. Parry 48 y/o M w/ PMHx HTN, DM2, HLD presents to the ED c/o abd pain. Pt was discharged yesterday (10/18) from [facility] s/p lap appy. Pt reports pain unchanged from his post-op pain. Pain worse vadim-umbilical. described as gas pains. states he feels like he has to have a BM but is unable to pass more that flatus. Pt took PO oxycodone 5mg w/ little to no relief. Pt reports more relief of pain from flatus and gas-x. Pt admits to feeling hungry but is afraid to eat 2/2 not having BM. Pt denies F/C, N/V, CP, SOB. Pt had KUB performed in ED which showed post-op ileus. PMHx: see above Meds: reviewed in chart ALL: NSAIDS PSHx: lap appy, nasal polypectomy SHx: 2 packs per week x12yrs; denies EtOH drug use FHx: noncontributory Review of Systems - Review of Systems All systems: reviewed and no additional remarkable complaints except (see HPI) Past Patient History - Infectious Disease Hx of Infectious Diseases: None - Past Social History Smoking Status: Former Smoker - CARDIAC Hx Hypertension: Yes - PULMONARY Hx Respiratory Disorders: No - NEUROLOGICAL Hx Neurological Disorder: No - HEENT Hx HEENT Problems: No - RENAL Hx Chronic Kidney Disease: No - ENDOCRINE/METABOLIC Hx Diabetes Mellitus Type 2: Yes - HEMATOLOGICAL/ONCOLOGICAL Hx Blood Disorders: No - INTEGUMENTARY Hx Dermatological Problems: No - MUSCULOSKELETAL/RHEUMATOLOGICAL Hx Falls: No - GASTROINTESTINAL Hx Gastrointestinal Disorders: No - GENITOURINARY/GYNECOLOGICAL Hx Genitourinary Disorders: No - PSYCHIATRIC Hx Psychophysiologic Disorder: No Hx Substance Use: No - SURGICAL HISTORY Other/Comment: appendectomy 10/17/18 - ANESTHESIA Hx Anesthesia: Yes Hx Anesthesia Reactions: No Hx Malignant Hyperthermia: No Meds Allergies/Adverse Reactions: Allergies Allergy/AdvReac Type Severity Reaction Status Date / Time ibuprofen Allergy WHEEZING Verified 10/19/18 18:59 Physical Exam - Constitutional Appears: Non-toxic, No Acute Distress - Head Exam Head Exam: NORMAL INSPECTION - Eye Exam Eye Exam: Normal appearance - ENT Exam ENT Exam: Mucous Membranes Moist - Respiratory Exam Respiratory Exam: NORMAL BREATHING PATTERN. absent: Accessory Muscle Use, Respiratory Distress - Cardiovascular Exam Cardiovascular Exam: absent: Bradycardia, Tachycardia - GI/Abdominal Exam GI & Abdominal Exam: Distended, Soft, Tenderness (appropriate vadim-umbilical TTP). absent: Firm, Guarding, Rebound, Rigid - Extremities Exam Extremities exam: Positive for: normal inspection - Neurological Exam Neurological exam: Alert, Oriented x3 - Psychiatric Exam Psychiatric exam: Normal Affect, Normal Mood - Skin Skin Exam: Dry, Intact, Normal Color, Warm Results - Vital Signs Recent Vital Signs: Last Vital Signs Temp 98 F 10/19/18 18:59 Pulse 108 H 10/19/18 18:59 Resp 19 10/19/18 18:59 BP 149/92 H 10/19/18 18:59 Pulse Ox 95 10/19/18 18:59 - Labs Result Diagrams: 10/19/18 19:34 10/19/18 19:34 Labs: Laboratory Results - last 24 hr 10/19/18 19:58 pO2 58 H VBG pH 7.44 H VBG pCO2 42.0 VBG HCO3 28.5 H VBG Total CO2 29.8 H VBG O2 Sat (Calc) 91.6 H VBG Base Excess 3.9 H VBG Potassium 4.4 Sodium 133.0 Chloride 98.0 Glucose 194 H Lactate 1.3 FiO2 21.0 Venous Blood Potassium 4.4 - Imaging and Cardiology Chest x-ray Status: Image reviewed by me Assessment & Plan - Assessment and Plan (Free Text) Assessment: 48 y/o M w/ post-op ileus POD#1.5 s/p Lap Appy Plan: - non-narcotic pain management - monitor bowel fxn - f/u labs - f/u UA - ADAT - encourage OOB to chair/Amb/IS use - IVF Pt discussed w/ Dr. Sohan Benitez PGY3
[2018-10-19 23:37] LABS: ALB/GLOB RATIO 1.1 (1.1-1.8); ALBUMIN 4.5 g/dL (3.0-4.8); ALT/SGPT 26 U/L (7-56); AST/SGOT 36 U/L (17-59); BLOOD UREA NITROGEN 16 mg/dL (7-21); CALCIUM 10.3 mg/dL (8.4-10.5); GFR NON-AFRICAN AMERICAN > 60
[2018-10-20] MEDS ORDERED: Sodium Chloride 0.9% 1,000 ML IV SCH (00:45)
[2018-10-20] MEDS ORDERED: Simethicone 80 mg Chewtab PO PRN (05:48)
--- NOTE | 2018-10-20 08:03 | CP.PCM.PN ---
Subjective - Date & Time of Evaluation Date of Evaluation: 10/20/18 Time of Evaluation: 08:04 - Subjective Subjective: General Surgery: Dr Parry PT S&E. ANTOINETTE. Readmitted for abdominal pain, likely post-operative ileus. Reports pain is improving. Was persistent cramping before, now pain only lasts for 60 seconds and is decreased in severity. Passing flatus. Denies BM. Denies N/V, F/C, dysuria, hematuria. Though minimal appetite Objective - Vital Signs/Intake and Output Vital Signs (last 24 hours): Temp Pulse Resp BP Pulse Ox 98.1 F 103 H 20 127/79 94 L 10/20/18 07:58 10/20/18 07:58 10/20/18 07:58 10/20/18 07:58 10/20/18 07:58 Intake and Output: 10/20/18 10/20/18 06:59 18:59 Intake Total 0 Balance 0 - Medications Medications: Current Medications Acetaminophen (Tylenol 325mg Tab) 650 mg PO Q4 PRN PRN Reason: Pain, Mild (1-3) Sodium Chloride (Sodium Chloride 0.9%) 1,000 mls @ 100 mls/hr IV .Q10H JENA Last Admin: 10/20/18 01:50 Dose: 100 mls/hr Simethicone (Mylicon Chew Tab) 40 mg PO QID PRN PRN Reason: GI distress Tramadol HCl (Ultram) 50 mg PO TID PRN PRN Reason: Pain, moderate (4-7) - Labs Labs: 10/19/18 19:34 10/19/18 19:34 - Constitutional Appears: Non-toxic, No Acute Distress - ENT Exam ENT Exam: Mucous Membranes Moist - Respiratory Exam Respiratory Exam: absent: Accessory Muscle Use, Respiratory Distress - Cardiovascular Exam Cardiovascular Exam: REGULAR RHYTHM. absent: Tachycardia - GI/Abdominal Exam GI & Abdominal Exam: Soft, Tenderness (post-op but improving). absent: Distended, Guarding, Rigid, Rebound - Extremities Exam Extremities Exam: absent: Pedal Edema - Neurological Exam Neurological Exam: Alert, Awake, Oriented x3 - Psychiatric Exam Psychiatric exam: Normal Affect, Normal Mood Assessment and Plan - Assessment and Plan (Free Text) Assessment: 48M with post-op ileus s/p lap appendectomy Plan: Reg diet as tolerated cont ambulation - chewing gum awaiting return of bowel function cont simethicone will follow closely d/w Dr Jose Luis Whalen, PGY4
--- NOTE | 2018-10-20 10:46 | RAD ---
Date of service: 10/19/2018 HISTORY: abdominal pain, r/o free air, bowel gas COMPARISON: None available. TECHNIQUE: 1 view obtained. FINDINGS: BOWEL: Normal. No obstruction. No free air. Mild constipation BONES: Normal. OTHER FINDINGS: None. IMPRESSION: No active disease.
--- NOTE | 2018-10-20 11:45 | CARD ---
APPROVED REPORT Date of service: 10/19/2018 EKG Measurement Heart [id number] <Conclusion> Sinus tachycardia Possible Left atrial enlargement Borderline ECG
--- NOTE | 2018-10-20 13:54 | CP.PCM.CON ---
<AraizaShanel cashil - Last Filed: 10/20/18 16:51> History of Present Illness - History of Present Illness History of Present Illness: Chuy Araiza Internal Medicine Resident- Consult Note on Behalf of Dr. Ocampo Subjective: CC: Abdominal Pain HPI: Patient is a 48 year old male with a past medical history of HTN, DM type 2, and HLD who was admitted for evaluation and treatment of abdominal pain. The GI team was consulted for management/recommendations for the aforementioned symptoms. Patient seen and examined at bedside. States that his post operative abdominal pain has resolved. Able to pass flatus which improves the pain however denies bowel movement. Patient denies nausea, vomiting, diarrhea, bright red blood per rectum, black stools, and change in stool caliber. Furthermore, denies fever, chills, chest pain, SOB, and urinary symptoms. 12 point ROS negative except as indicated above Past Medical History: HTN, DM2, HLD Past Surgical History: laproscopic appendectomy, nasal polypectomy Allergies: ibuprofen Family History: mother- DM, father- DM Social History: [id number]; denies EtOH drug use Medications: As per [facility] Physical Examination: - Constitutional Appears: No acute distress - Head Exam Head Exam: ATRAUMATIC, NORMAL INSPECTION, NORMOCEPHALIC - Eye Exam Eye Exam: EOMI, Normal appearance - ENT Exam ENT Exam: Mucous Membranes Dry - Neck Exam Neck exam: Positive for: Normal Inspection - Respiratory Exam Respiratory Exam: Clear to Auscultation Bilateral, NORMAL BREATHING PATTERN - Cardiovascular Exam Cardiovascular Exam: +S1, +S2. absent: Gallop, Rubs, - GI/Abdominal Exam GI & Abdominal Exam: Distended, Soft, Periumbilical tenderness, absent: Firm, Guarding, Rebound, Rigid - Extremities Exam Extremities exam: no clubbing, no cyanosis - Neurological Exam Neurological exam: Alert, CN II-XII Intact, Oriented x3 - Skin Skin Exam: incision sites clean, dry, intact, normal Color, warm Studies Reviewed 10/17/2018 CT Abdomen and Pelvis with contrast- There is mural thickening and enhancement of the appendix as well as minimal surrounding inflammatory changes. Findings are consistent with early appendicitis. 10/20/2018 abdominal xray- No active disease Assessment and Plan: Patient is a 48 year old male with a past medical history of HTN, DM2, and HLD who was admitted for evaluation and treatment of abdominal pain. - Post-op ileus POD#1 s/p Lap Appy - Hx of DM - Hx of HTN - Hx of HPL - no acute GI endoscopic intervention at this time - continue with simethicone as needed - recommend screening colonoscopy in the outpatient setting Patient seen, case discussed with, and plan approved by attending physician, Dr. Ocampo. Past Patient History - Infectious Disease Hx of Infectious Diseases: None - Past Social History Smoking Status: Former Smoker - CARDIAC Hx Hypertension: Yes - PULMONARY Hx Respiratory Disorders: No - NEUROLOGICAL Hx Neurological Disorder: No - HEENT Hx HEENT Problems: No - RENAL Hx Chronic Kidney Disease: No - ENDOCRINE/METABOLIC Hx Diabetes Mellitus Type 2: Yes - HEMATOLOGICAL/ONCOLOGICAL Hx Blood Disorders: No - INTEGUMENTARY Hx Dermatological Problems: No - MUSCULOSKELETAL/RHEUMATOLOGICAL Hx Falls: No - GASTROINTESTINAL Hx Gastrointestinal Disorders: No - GENITOURINARY/GYNECOLOGICAL Hx Genitourinary Disorders: No - PSYCHIATRIC Hx Psychophysiologic Disorder: No Hx Substance Use: No - SURGICAL HISTORY Other/Comment: appendectomy 10/17/18 - ANESTHESIA Hx Anesthesia: Yes Hx Anesthesia Reactions: No Hx Malignant Hyperthermia: No Meds Allergies/Adverse Reactions: Allergies Allergy/AdvReac Type Severity Reaction Status Date / Time ibuprofen Allergy WHEEZING Verified 10/19/18 18:59 - Medications Medications: Current Medications Acetaminophen (Tylenol 325mg Tab) 650 mg PO Q4 PRN PRN Reason: Pain, Mild (1-3) Simethicone (Mylicon Chew Tab) 40 mg PO QID PRN PRN Reason: GI distress Last Admin: 10/20/18 09:16 Dose: 40 mg Tramadol HCl (Ultram) 50 mg PO TID PRN PRN Reason: Pain, moderate (4-7) Results - Vital Signs Recent Vital Signs: Last Vital Signs Temp 98.1 F 10/20/18 07:58 Pulse 103 H 10/20/18 07:58 Resp 20 10/20/18 07:58 BP 127/79 10/20/18 07:58 Pulse Ox 94 L 10/20/18 07:58 - Labs Result Diagrams: 10/19/18 19:34 10/19/18 19:34 Labs: Laboratory Results - last 24 hr 10/19/18 10/19/18 10/19/18 19:34 19:34 19:58 WBC 13.1 H RBC 5.61 Hgb 15.9 Hct 46.1 MCV 82.2 MCH 28.3 MCHC 34.5 RDW 13.5 Plt Count 364 MPV 9.4 Neut % (Auto) 72.5 H Lymph % (Auto) 16.1 L [place] % (Auto) 10.8 H Eos % (Auto) 0.5 L Baso % (Auto) 0.1 Lymph # (Auto) 2.1 [place] # (Auto) 1.4 H Eos # (Auto) 0.1 Baso # (Auto) 0.01 Absolute Neuts (auto) 9.50 H pO2 58 H VBG pH 7.44 H VBG pCO2 42.0 VBG HCO3 28.5 H VBG Total CO2 29.8 H VBG O2 Sat (Calc) 91.6 H VBG Base Excess 3.9 H VBG Potassium 4.4 Glucose 194 H Lactate 1.3 FiO2 21.0 Sodium 138 133.0 Potassium 4.0 Chloride 97 L 98.0 Carbon Dioxide 25 Anion Gap 21 H BUN 16 Creatinine 1.1 Est GFR ( Amer) > 60 Est GFR (Non-Af Amer) > 60 POC Glucose (mg/dL) Random Glucose 179 H Calcium 10.3 Total Bilirubin 0.8 AST 36 ALT 26 Alkaline Phosphatase 91 Total Protein 8.6 H Albumin 4.5 Globulin 4.1 Albumin/Globulin Ratio 1.1 Venous Blood Potassium 4.4 10/20/18 10/20/18 07:05 11:28 WBC RBC Hgb Hct MCV MCH MCHC RDW Plt Count MPV Neut % (Auto) Lymph % (Auto) [place] % (Auto) Eos % (Auto) Baso % (Auto) Lymph # (Auto) [place] # (Auto) Eos # (Auto) Baso # (Auto) Absolute Neuts (auto) pO2 VBG pH VBG pCO2 VBG HCO3 VBG Total CO2 VBG O2 Sat (Calc) VBG Base Excess VBG Potassium Glucose Lactate FiO2 Sodium Potassium Chloride Carbon Dioxide Anion Gap BUN Creatinine Est GFR ( Amer) Est GFR (Non-Af Amer) POC Glucose (mg/dL) 164 H 185 H Random Glucose Calcium Total Bilirubin AST ALT Alkaline Phosphatase Total Protein Albumin Globulin Albumin/Globulin Ratio Venous Blood Potassium <DamarisKovil V - Last Filed: 10/21/18 20:04> Meds - Medications Medications: Current Medications Acetaminophen (Tylenol 325mg Tab) 650 mg PO Q4 PRN PRN Reason: Pain, Mild (1-3) Atorvastatin Calcium (Lipitor) 10 mg PO HS JENA Lisinopril (Zestril) 5 mg PO DAILY JENA Metformin HCl (Glucophage) 1,000 mg PO BID JENA Last Admin: 10/20/18 18:21 Dose: 1,000 mg Simethicone (Mylicon Chew Tab) 40 mg PO QID PRN PRN Reason: GI distress Last Admin: 10/20/18 09:16 Dose: 40 mg Tramadol HCl (Ultram) 50 mg PO TID PRN PRN Reason: Pain, moderate (4-7) Results - Vital Signs Recent Vital Signs: Last Vital Signs Temp 98.3 F 10/20/18 17:03 Pulse 88 10/20/18 17:03 Resp 18 10/20/18 17:03 BP 121/79 10/20/18 17:03 Pulse Ox 90 L 10/20/18 17:03 - Labs Result Diagrams: 10/19/18 19:34 10/19/18 19:34 Labs: Laboratory Results - last 24 hr 10/20/18 10/20/18 10/20/18 07:05 11:28 16:13 POC Glucose (mg/dL) 164 H 185 H 183 H 10/20/18 21:04 POC Glucose (mg/dL) 210 H Attending/Attestation - Attestation I have personally seen and examined this patient.: Yes I have fully participated in the care of the patient.: Yes I have reviewed all pertinent clinical information: Yes Notes (Text): This is a delayed addendum to the consultation report dictated by the resident. The patient was seen and evaluated along with the resident earlier. Imaging studies were reviewed. Compared with the CAT scan done in the previous admission. Significant amount of thick fecal material noticed in the previous CT. Status post appendectomy. On MiraLAX regimen. Patient has started passing more flatus. Continue laxatives. No GI intervention now. Patient would benefit from screening colonoscopy. Patient was advised strongly about it patient fully understood 10/21/18 00:04 10/21/18 20:03
[2018-10-20] MEDS ORDERED: Magnesium Hydroxide Susp 30 ml UD PO ONE (14:11)
--- NOTE | 2018-10-20 14:24 | CP.PCM.HP ---
<John Bonilla - Last Filed: 10/20/18 14:17> History of Present Illness - History of Present Illness History of Present Illness: John Bonilla D.O. PGY-3, Internal Medicine Resident, Dr. Ordo[facility]ez's Service, H&P Chief complaint: Abdominal pain and discomfort for 1 day 48-year-old male with past medical history of hypertension, diabetes type 2, hyperlipidemia who presented to the emergency room for complaints of abdominal pain after appendectomy. Patient's originally presents aid on October 17 and had surgery that same night. Patient was discharged later in the day on the . However patient states that he had pain so severe and he felt like he needed to defecate but he was unable to. Patient has however been able to pass some gas. Patient had trialed some Gas-X with minimal improvements. Denies any fevers, chills, nausea, vomiting, diarrhea, cuts patient, chest pain, shortness of breath or other acute signs. PMH: As above PSH: Arthroscopic appendectomy, nasal polypectomy SH: [id number], denies ethanol use FH: Diabetes in both sides Medications: Reviewed Allergies: Ibuprofen Present on Admission - Present on Admission Any Indicators Present on Admission: No Review of Systems - Review of Systems All systems: reviewed and no additional remarkable complaints except (as per HPI) Past Patient History - Infectious Disease Hx of Infectious Diseases: None - Past Social History Smoking Status: Former Smoker - CARDIAC Hx Hypertension: Yes - PULMONARY Hx Respiratory Disorders: No - NEUROLOGICAL Hx Neurological Disorder: No - HEENT Hx HEENT Problems: No - RENAL Hx Chronic Kidney Disease: No - ENDOCRINE/METABOLIC Hx Diabetes Mellitus Type 2: Yes - HEMATOLOGICAL/ONCOLOGICAL Hx Blood Disorders: No - INTEGUMENTARY Hx Dermatological Problems: No - MUSCULOSKELETAL/RHEUMATOLOGICAL Hx Falls: No - GASTROINTESTINAL Hx Gastrointestinal Disorders: No - GENITOURINARY/GYNECOLOGICAL Hx Genitourinary Disorders: No - PSYCHIATRIC Hx Psychophysiologic Disorder: No Hx Substance Use: No - SURGICAL HISTORY Other/Comment: appendectomy 10/17/18 - ANESTHESIA Hx Anesthesia: Yes Hx Anesthesia Reactions: No Hx Malignant Hyperthermia: No Meds Allergies/Adverse Reactions: Allergies Allergy/AdvReac Type Severity Reaction Status Date / Time ibuprofen Allergy WHEEZING Verified 10/19/18 18:59 Physical Exam - Constitutional Appears: Non-toxic, No Acute Distress Additional comments: uncomfortable - Head Exam Head Exam: ATRAUMATIC, NORMOCEPHALIC - Eye Exam Eye Exam: EOMI. absent: Scleral icterus - ENT Exam ENT Exam: Mucous Membranes Moist, Normal Oropharynx - Neck Exam Neck exam: Positive for: Normal Inspection - Respiratory Exam Respiratory Exam: Clear to Auscultation Bilateral. absent: Rales, Rhonchi, Wheezes - Cardiovascular Exam Cardiovascular Exam: RRR, +S1, +S2. absent: Gallop, Rubs - GI/Abdominal Exam GI & Abdominal Exam: Soft, Tenderness. absent: Distended - Extremities Exam Extremities exam: Negative for: calf tenderness, pedal edema - Neurological Exam Neurological exam: Alert, CN II-XII Intact, Oriented x3 - Psychiatric Exam Psychiatric exam: Normal Affect, Normal Mood - Skin Skin Exam: Dry, Warm Results - Vital Signs Recent Vital Signs: Last Vital Signs Temp 98.1 F 10/20/18 07:58 Pulse 103 H 10/20/18 07:58 Resp 20 10/20/18 07:58 BP 127/79 10/20/18 07:58 Pulse Ox 94 L 10/20/18 07:58 - Labs Result Diagrams: 10/19/18 19:34 10/19/18 19:34 Labs: Laboratory Results - last 24 hr 10/19/18 10/19/18 10/19/18 19:34 19:34 19:58 WBC 13.1 H RBC 5.61 Hgb 15.9 Hct 46.1 MCV 82.2 MCH 28.3 MCHC 34.5 RDW 13.5 Plt Count 364 MPV 9.4 Neut % (Auto) 72.5 H Lymph % (Auto) 16.1 L [place] % (Auto) 10.8 H Eos % (Auto) 0.5 L Baso % (Auto) 0.1 Lymph # (Auto) 2.1 [place] # (Auto) 1.4 H Eos # (Auto) 0.1 Baso # (Auto) 0.01 Absolute Neuts (auto) 9.50 H pO2 58 H VBG pH 7.44 H VBG pCO2 42.0 VBG HCO3 28.5 H VBG Total CO2 29.8 H VBG O2 Sat (Calc) 91.6 H VBG Base Excess 3.9 H VBG Potassium 4.4 Glucose 194 H Lactate 1.3 FiO2 21.0 Sodium 138 133.0 Potassium 4.0 Chloride 97 L 98.0 Carbon Dioxide 25 Anion Gap 21 H BUN 16 Creatinine 1.1 Est GFR ( Amer) > 60 Est GFR (Non-Af Amer) > 60 POC Glucose (mg/dL) Random Glucose 179 H Calcium 10.3 Total Bilirubin 0.8 AST 36 ALT 26 Alkaline Phosphatase 91 Total Protein 8.6 H Albumin 4.5 Globulin 4.1 Albumin/Globulin Ratio 1.1 Venous Blood Potassium 4.4 10/20/18 10/20/18 07:05 11:28 WBC RBC Hgb Hct MCV MCH MCHC RDW Plt Count MPV Neut % (Auto) Lymph % (Auto) [place] % (Auto) Eos % (Auto) Baso % (Auto) Lymph # (Auto) [place] # (Auto) Eos # (Auto) Baso # (Auto) Absolute Neuts (auto) pO2 VBG pH VBG pCO2 VBG HCO3 VBG Total CO2 VBG O2 Sat (Calc) VBG Base Excess VBG Potassium Glucose Lactate FiO2 Sodium Potassium Chloride Carbon Dioxide Anion Gap BUN Creatinine Est GFR ( Amer) Est GFR (Non-Af Amer) POC Glucose (mg/dL) 164 H 185 H Random Glucose Calcium Total Bilirubin AST ALT Alkaline Phosphatase Total Protein Albumin Globulin Albumin/Globulin Ratio Venous Blood Potassium Assessment & Plan - Assessment and Plan (Free Text) Assessment: 48-year-old male with past medical history of hypertension, diabetes type 2, h yperlipidemia who presented to the emergency room for complaints of abdominal pain after appendectomy. Plan: 1. Abdominal pain status post appendectomy postop day #2 2. Hypertension 3. Diabetes 4. Hyperlipidemia Etiology of abdominal pain likely secondary to postoperative ileus though other etiologies cannot be fully ruled out. CAT scan on presentation showed mural thickening and enhancement of the appendix as well as minimal surrounding inflammatory changes which were found to be consistent with early appendicitis. Discussed case with surgical endoscopist who states that intraoperatively the appendix did have the appearance of appendicitis. Abdominal x-ray was performed and showed no active disease. Continue with tramadol for pain relief. Continue with simethicone tablets. Received 1 suppository this morning as well as a Flee t enema previously. We will follow-up for bowel movements. Has been upgraded to a regular diet by surgery. Will change to carb consistent. Amylase and lipase to be obtained tomorrow morning. Leukocytosis downtrending. We will obtain a gastrointestinal consultation as well for evaluation of his abdominal pain. Continue home lisinopril. Continue home simvastatin. Continue home metformin. Patient was seen and examined and case discussed at length with attending physician. - Date & Time Date: 10/20/18 Time: 07:40 <Matthew Ordoñez - Last Filed: 10/20/18 17:48> Results - Vital Signs Recent Vital Signs: Last Vital Signs Temp 98.3 F 10/20/18 17:03 Pulse 88 10/20/18 17:03 Resp 18 10/20/18 17:03 BP 121/79 10/20/18 17:03 Pulse Ox 90 L 10/20/18 17:03 - Labs Result Diagrams: 10/19/18 19:34 10/19/18 19:34 Labs: Laboratory Results - last 24 hr 10/19/18 10/19/18 10/19/18 19:34 19:34 19:58 WBC 13.1 H RBC 5.61 Hgb 15.9 Hct 46.1 MCV 82.2 MCH 28.3 MCHC 34.5 RDW 13.5 Plt Count 364 MPV 9.4 Neut % (Auto) 72.5 H Lymph % (Auto) 16.1 L [place] % (Auto) 10.8 H Eos % (Auto) 0.5 L Baso % (Auto) 0.1 Lymph # (Auto) 2.1 [place] # (Auto) 1.4 H Eos # (Auto) 0.1 Baso # (Auto) 0.01 Absolute Neuts (auto) 9.50 H pO2 58 H VBG pH 7.44 H VBG pCO2 42.0 VBG HCO3 28.5 H VBG Total CO2 29.8 H VBG O2 Sat (Calc) 91.6 H VBG Base Excess 3.9 H VBG Potassium 4.4 Glucose 194 H Lactate 1.3 FiO2 21.0 Sodium 138 133.0 Potassium 4.0 Chloride 97 L 98.0 Carbon Dioxide 25 Anion Gap 21 H BUN 16 Creatinine 1.1 Est GFR ( Amer) > 60 Est GFR (Non-Af Amer) > 60 POC Glucose (mg/dL) Random Glucose 179 H Calcium 10.3 Total Bilirubin 0.8 AST 36 ALT 26 Alkaline Phosphatase 91 Total Protein 8.6 H Albumin 4.5 Globulin 4.1 Albumin/Globulin Ratio 1.1 Venous Blood Potassium 4.4 10/20/18 10/20/18 10/20/18 07:05 11:28 16:13 WBC RBC Hgb Hct MCV MCH MCHC RDW Plt Count MPV Neut % (Auto) Lymph % (Auto) [place] % (Auto) Eos % (Auto) Baso % (Auto) Lymph # (Auto) [place] # (Auto) Eos # (Auto) Baso # (Auto) Absolute Neuts (auto) pO2 VBG pH VBG pCO2 VBG HCO3 VBG Total CO2 VBG O2 Sat (Calc) VBG Base Excess VBG Potassium Glucose Lactate FiO2 Sodium Potassium Chloride Carbon Dioxide Anion Gap BUN Creatinine Est GFR ( Amer) Est GFR (Non-Af Amer) POC Glucose (mg/dL) 164 H 185 H 183 H Random Glucose Calcium Total Bilirubin AST ALT Alkaline Phosphatase Total Protein Albumin Globulin Albumin/Globulin Ratio Venous Blood Potassium Assessment & Plan - Assessment and Plan (Free Text) Plan: Pt seen and examined by me. I have reviewed the note of the medical receptionist and I agree with it. I have discussed the assessment and plan with the resident. I have reviewed the medications and the last labs.
[2018-10-20 17:04] VITALS: RESP 18
--- NOTE | 2018-10-20 21:13 | PN ---
DATE: 10/20/2018 The patient was seen and examined. I do agree with the note of the medical supply technician. I was involved in the plan of care. The patient was admitted to the hospital because of abdominal pain. He was recently discharged because of appendicitis and he had a surgery. The patient has underlying diabetes and dyslipidemia. He was using Gas-X with minimal improvement. The patient also had been complaining of constipation. When he was admitted to the hospital, he had mildly elevated white cell count. He was given laxatives. The patient was seen by Surgery. I did review the notes. The patient had a CAT scan of the abdomen and pelvis previously that showed thickening enhancement of the appendix. I did review the note of the GI team. We will continue with laxative therapy to see if the patient has improved on his symptoms. He is going to get metformin for his diabetes and Lipitor for his dyslipidemia. The patient is on tramadol for pain. He is on lisinopril for his hypertension. I will repeat blood work tomorrow and also add amylase and lipase. He says his pain is mostly epigastric. Matthew Ordoñez MD
[2018-10-21] MEDS ORDERED: Magnesium Citrate Oral SOL (300 ml) PO ONE ×2 (08:06→10:15)
[2018-10-21 08:09] VITALS: BP 112/76; PULSE 75; TEMP 97.6; O2SAT 95
--- NOTE | 2018-10-21 08:14 | CP.PCM.PN ---
Subjective - Date & Time of Evaluation Date of Evaluation: 10/21/18 Time of Evaluation: 08:09 - Subjective Subjective: General Surgery: Dr Parry Pt S&E. NAEO. OOB and ambulating. Tolerating regular diet. Has been passing fllatus but only small BM. Concerned he needs to have a larger BM. Has minor distension and discomfort but significantly improved with no further cramping pain. Pt refusing blood work this morning as he reports he is feeling better. Objective - Vital Signs/Intake and Output Vital Signs (last 24 hours): Temp Pulse Resp BP Pulse Ox 97.6 F 75 18 112/76 95 10/21/18 08:08 10/21/18 08:08 10/21/18 08:08 10/21/18 08:08 10/21/18 08:08 Intake and Output: 10/21/18 10/21/18 06:59 18:59 Intake Total 1200 Balance 1200 - Medications Medications: Current Medications Acetaminophen (Tylenol 325mg Tab) 650 mg PO Q4 PRN PRN Reason: Pain, Mild (1-3) Atorvastatin Calcium (Lipitor) 10 mg PO HS JENA Lisinopril (Zestril) 5 mg PO DAILY JENA Magnesium Citrate (Citrate Of Mag) 300 ml PO ONCE ONE Stop: 10/21/18 08:07 Metformin HCl (Glucophage) 1,000 mg PO BID JENA Last Admin: 10/20/18 18:21 Dose: 1,000 mg Simethicone (Mylicon Chew Tab) 40 mg PO QID PRN PRN Reason: GI distress Last Admin: 10/20/18 09:16 Dose: 40 mg Tramadol HCl (Ultram) 50 mg PO TID PRN PRN Reason: Pain, moderate (4-7) - Labs Labs: 10/19/18 19:34 10/19/18 19:34 - Constitutional Appears: Non-toxic, No Acute Distress - Head Exam Head Exam: NORMAL INSPECTION - Eye Exam Eye Exam: Normal appearance - ENT Exam ENT Exam: Mucous Membranes Moist - Respiratory Exam Respiratory Exam: absent: Accessory Muscle Use, Respiratory Distress - Cardiovascular Exam Cardiovascular Exam: REGULAR RHYTHM - GI/Abdominal Exam GI & Abdominal Exam: Distended (improved), Soft, Tenderness (post-surgical and improved). absent: Guarding, Rigid, Hernia, Hyperactive Bowel Sounds - Rectal Exam Rectal Exam: absent: Deferred - Extremities Exam Extremities Exam: absent: Pedal Edema - Neurological Exam Neurological Exam: Alert, Awake, Oriented x3 - Psychiatric Exam Psychiatric exam: Normal Affect, Normal Mood Assessment and Plan - Assessment and Plan (Free Text) Assessment: 48M s/p laparoscopic appendectomy; admitted for post-op ileus Plan: pt refusing blood work condition improving could benefit from solid BM - Mag Citrate clear for discharge this afternoon after BM d/w Dr Sohan Whalen, PGY4
--- NOTE | 2018-10-21 23:21 | DS ---
HISTORY OF PRESENT ILLNESS: The patient has no complaints of any chest pain or shortness of breath. He was having constipation. He continues to have bowel movements. He is still not at ease as much as he would prefer. He was followed by Surgery and GI. No further intervention is planned. PHYSICAL EXAMINATION: VITAL SIGNS: Temperature is 97.6, pulse is 75, blood pressure 112/76, and respirations 18. GENERAL: The patient is lying in bed, flat, comfortable. HEENT: No oral lesion. Anicteric sclerae. Moist mucosa. NECK: No JVD, adenopathy, or thyromegaly. CARDIOVASCULAR: S1 and S2, regular. No murmurs, rubs, or gallops. LUNGS: Clear to auscultation bilaterally. No wheeze, rales, or rhonchi. ABDOMEN: Bowel sounds are positive, soft, nontender and nondistended. EXTREMITIES: No cyanosis, clubbing, or edema. LABORATORY DATA: White count of 13.1, hemoglobin 15.9, and creatinine is 1.1. ASSESSMENT: 1. Constipation. 2. Hypertension. 3. Diabetes type 2. 4. Dyslipidemia. 5. Status post appendectomy, postoperative day #3. PLAN: The patient is going to be placed on magnesium citrate for constipation. He is on metformin for his diabetes. He is on Lipitor for dyslipidemia. He is on tramadol for pain. He is on Zestril for his hypertension. He is on a carbohydrate consistent diet. The patient refused blood work today. If he has his bowel movement, he is going to be discharged. His condition is stable. Activity is increased as tolerated. Matthew Ordoñez MD
== END 2018-10-21 15:22 | disposition home or self-care (01) | DRG 394 ==
LOC: ED 18:50 → OBSVTOIN 10-20 01:08 → ERH 10-20 01:08 → 3RNO 10-20 02:26
PROVIDERS: ADMIT Internal Medicine Nephrology; ATTEND Internal Medicine Nephrology
DX: K91.89 Other postprocedural complications and disorders of digestive system (principal); K56.7 Ileus, unspecified; E11.9 Type 2 diabetes mellitus without complications; I10 Essential (primary) hypertension; E78.5 Hyperlipidemia, unspecified; Y83.8 Other surgical procedures as the cause of abnormal reaction of the patient, or of later complication, without mention of misadventure at the time of the procedure; Z79.84 Long term (current) use of oral hypoglycemic drugs; Z79.899 Other long term (current) drug therapy; Z87.891 Personal history of nicotine dependence